=== PATIENT | male | born 1945 | race Caucasian/White ===

== ENCOUNTER 2021-06-02 11:41 | Emergency (ER) | payer MEDICARE, OTHER ==
[2021-06-02] MEDS ORDERED: Lidocaine 1% (PF) 30 ML VIAL ONE (12:28)
[2021-06-02] MEDS ORDERED: Bacitracin 1 PK ONE (13:27)
[2021-06-02] MEDS ORDERED: Boostrix 0.5 ML (Tdap) VIAL ONE (13:37)
== END 2021-06-02 13:45 | disposition home or self-care (01) ==
LOC: NAV ERS 11:41
DX: S67.190A Crushing injury of right index finger, initial encounter (principal); S61.210A Laceration without foreign body of right index finger without damage to nail, initial encounter; I10 Essential (primary) hypertension; W23.0XXA Caught, crushed, jammed, or pinched between moving objects, initial encounter
CPT/HCPCS: 12032; 90471; 90715; J2001

== ENCOUNTER 2021-06-17 08:10 | Emergency (ER) | payer MEDICARE, OTHER | END 2021-06-17 09:08 | disposition home or self-care (01) | LOC: NAV ERS 08:10 | DX: S61.210D Laceration without foreign body of right index finger without damage to nail, subsequent encounter (principal); E78.00 Pure hypercholesterolemia, unspecified; W23.0XXD Caught, crushed, jammed, or pinched between moving objects, subsequent encounter ==

== ENCOUNTER 2021-06-27 10:04 | Emergency (ER) | payer MEDICARE, OTHER ==
[2021-06-27] MEDS ORDERED: Cephalexin 250 MG CAP ONE (10:47)
== END 2021-06-27 10:53 | disposition home or self-care (01) ==
LOC: NAV ERS 10:04
DX: L03.011 Cellulitis of right finger (principal); E78.00 Pure hypercholesterolemia, unspecified; Z79.899 Other long term (current) drug therapy
CPT/HCPCS: 87070; 87077; 87186; 87205; 99283